=== PATIENT | female | born 1970 | race Hispanic/Latino ===

== ENCOUNTER 2016-09-05 16:04 | Emergency (ER) | payer MEDICAID, OTHER ==
[2016-09-05 17:01] VITALS: RESP 18
[2016-09-05] MEDS ORDERED: Oxycodone/Acetaminophen 5/325 mg Tab PO STA (18:28)
--- NOTE | 2016-09-05 18:29 | C.PDOC ---
History Of Present Illness 46 yr old female presents to the ER for evaluation of left upper back pain gradually developing for the past 2 days. Patient states the pain started after she sustained some injury " rolled over like cartwheel". Patient reports the pain is localized, reproducible, worse with movement more of the left shoulder. Patient admits to similar symptoms in the past. Patient denies head injury, LOC , neck pain, fever, chills, chest pain, SOB, dyspnea, diaphoresis, nausea, vomiting, abdominal pain, denies obvious deformity, weakness, numbness to B/L UEs. Ambulate to ED for evaluation, appears in pain. Time Seen by Provider: 09/05/16 18:07 Chief Complaint (Nursing): Upper Extremity Problem/Injury History Per: Patient Onset/Duration Of Symptoms: Gradual (2 days) Current Symptoms Are (Timing): Still Present Past Medical History Reviewed: Historical Data, Nursing Documentation, Vital Signs Vital Signs: Last Vital Signs Temp 98.2 F 09/05/16 19:45 Pulse 72 09/05/16 19:45 Resp 18 09/05/16 19:45 BP 124/72 09/05/16 19:45 Pulse Ox 100 09/05/16 21:48 - Medical History PMH: Anemia (low platelets) - [facility] Procedures TETANUS TOXOID ADMINIST (07/03/13) Family History: States: No Known Family Hx - Social History Hx Tobacco Use: No Hx Alcohol Use: No Hx Substance Use: Yes - Immunization History Hx Tetanus Toxoid Vaccination: No Hx Influenza Vaccination: Yes Hx Pneumococcal Vaccination: Yes Review Of Systems Except As Marked, All Systems Reviewed And Found Negative. Constitutional: Negative for: Fever, Chills Cardiovascular: Negative for: Chest Pain Respiratory: Negative for: Shortness of Breath Gastrointestinal: Negative for: Nausea, Vomiting, Abdominal Pain, Diarrhea Musculoskeletal: Positive for: Back Pain (Left upper back pain ) Neurological: Negative for: Weakness, Numbness Physical Exam - Physical Exam Appears: Well, Non-toxic, No Acute Distress Skin: Normal Color, Warm, Dry, Other (vesicular rash vs scratches overlying Left periscapular area with mild erythema. No cellulitis.) Eye(s): bilateral: Normal Inspection Nose: Normal Throat: Normal, No Erythema, No Exudate, No Drooling Neck: Normal, Normal ROM, Supple Chest: Symmetrical Cardiovascular: Rhythm Regular Respiratory: Normal Breath Sounds, No Stridor, No Wheezing Back: Normal Inspection, Other (reproducible Left periscapular tenderness. No midline spine tenderness, no palpable deformity.) Extremity: Normal ROM, No Tenderness, No Pedal Edema, No Deformity Extremity: Bilateral: Atraumatic Neurological/Psych: Oriented x3, Normal Speech, Normal Motor, Normal Sensation, Normal Reflexes ED Course And Treatment O2 Sat by Pulse Oximetry: 100 Pulse Ox Interpretation: Normal - Radiology CXR: Interpreted by Me, Viewed By Me CXR Interpretation: Yes: No Acute Disease Progress Note: On re-eavluation, pt is afebrile, hemodynamicalys table. NOn- toxic. PulsEOx 100% RA. Neck: (-) meningeal sign, (-) midline tenderness. ENT : no acute findings. Lungs: CTA B/L, BS equal B/L. CVS: (+)S1S2, reg. ABd: Bengn. CXR- noraml study. Pt has clinical findings c/w upper back pain, reproducible r/o muscle strain. Rash vs scratching/excoriation. Pt advised and ref. to F/u with PMD In 1-2 days for re-eavl. return to ED if any worsening or new changes. Medical Decision Making Medical Decision Making: PLAN: * CXR * Percocet PO Disposition Counseled Patient/Family Regarding: Studies Performed, Diagnosis, Need For Followup, Rx Given - Disposition Disposition: HOME/ ROUTINE Disposition Time: 19:02 Condition: STABLE Prescriptions: traMADol [Ultram] 50 mg PO TID #7 tab Instructions: Back Pain (ED) Print Language: IRISH - Clinical Impression Clinical Impression: Back pain - PA / [employer] / Resident Statement MD/DO has reviewed & agrees with the documentation as recorded. - Scribe Statement The provider has reviewed the documentation as recorded by the Scribe Yumiko Awad All medical record entries made by the Benitoibjuliann were at my direction and personally dictated by me. I have reviewed the chart and agree that the record accurately reflects my personal performance of the history, physical exam, medical decision making, and the department course for this patient. I have also personally directed, reviewed, and agree with the discharge instructions and disposition.
[2016-09-05] MEDS ORDERED: Oxycodone/Acetaminophen 5/325 mg Tab ONE (18:35)
[2016-09-05 19:57] VITALS: BP 124/72; PULSE 72; TEMP 98.2
[2016-09-05 21:44] VITALS: O2SAT 100
--- NOTE | 2016-09-06 09:51 | RAD ---
HISTORY: Cough COMPARISON: No prior. TECHNIQUE: Chest PA and lateral FINDINGS: LUNGS: No active pulmonary disease. PLEURA: No significant pleural effusion identified. No pneumothorax apparent. CARDIOVASCULAR: Normal. OSSEOUS STRUCTURES: No significant abnormalities. VISUALIZED UPPER ABDOMEN: Normal. OTHER FINDINGS: None. IMPRESSION: No radiographic evidence of pneumonia.
== END 2016-09-05 19:50 | disposition home or self-care (01) ==
LOC: C.ER 16:04
DX: M54.89 Other dorsalgia (principal)